=== PATIENT | male | born 1965 | race African-American/Black ===

== ENCOUNTER 2021-01-20 13:21 | Inpatient (IN) | payer BC ==
[2021-01-20] MEDS ORDERED: ACETAMINOPHEN 325 MG TABLET (FP) PO PRN ×2 (19:14)
[2021-01-20] MEDS ORDERED: METHOCARBAMOL 500 MG TABLET PO PRN (19:14)
[2021-01-20] MEDS ORDERED: MAGNESIUM HYDROX 2400MG/30ML ORAL SUSPENSION 30 ML CUP PO PRN (19:14)
[2021-01-20] MEDS ORDERED: BISMUTH SUBSALICYLATE 524 MG/30 ML UD PO PRN (19:14)
[2021-01-20] MEDS ORDERED: ONDANSETRON *ODT* 4 MG TABLET SL PRN (19:14)
[2021-01-20] MEDS ORDERED: MAGNESIUM CITRATE 300 ML BOTTLE PO PRN (19:14)
[2021-01-20] MEDS ORDERED: IBUPROFEN 400 MG TABLET (FP) PO PRN (19:14)
[2021-01-20] MEDS ORDERED: NICOTINE POLACRILEX 2 MG GUM BUC PRN (19:14)
[2021-01-20] MEDS ORDERED: MENTHOL/PHENOL 1 EACH UD MM PRN (19:14)
[2021-01-20] MEDS ORDERED: MAG HYDROX/AL HYDROX/SIMETH 30 ML UNIT-DOSE CUP PO PRN (19:14)
[2021-01-20 19:41] VITALS: BMI 33.1
[2021-01-20] MEDS ORDERED: diazePAM 5 MG TABLET PO ONE (20:24)
[2021-01-20] MEDS ORDERED: diazePAM 5 MG TABLET PO PRN (20:24)
[2021-01-20] MEDS: THIAMINE HCL 100 MG TABLET (FP) PO SCH (22:15)
[2021-01-20] MEDS: MELATONIN 5 MG TABLETS PO SCH (22:15)
[2021-01-20] MEDS: hydrOXYzine PAMOATE 25 MG CAPSULE (FP) PO SCH (22:15)
[2021-01-20] MEDS: diazePAM 5 MG TABLET PO SCH (22:18)
[2021-01-21] MEDS: diazePAM 5 MG TABLET PO SCH ×4 (05:53→22:17)
[2021-01-21] MEDS: hydrOXYzine PAMOATE 25 MG CAPSULE (FP) PO SCH ×2 (05:54→10:15)
[2021-01-21] MEDS: PRENATAL VITAMINS W/ FOLIC ACID TABLET (FP) PO SCH (10:15)
[2021-01-21] MEDS ORDERED: hydrOXYzine PAMOATE 25 MG CAPSULE (FP) PO PRN (10:45)
[2021-01-21 11:59] LABS: HEMATOCRIT 40.8 % (35.4-49); MCH 32.9 pg (25.7-33.7); MCHC 34.2 g/dl (32.0-35.9); MEAN CELL VOLUME 96.2 fl (80-96); MEAN PLT VOLUME 8.4 fl (7.5-11.1); PLATELET COUNT 107 K/MM3 (134-434); RBC 4.24 M/mm3 (4.00-5.60); RDW 14.1 % (11.9-15.9); WHITE BLOOD COUNT 2.7 K/mm3 (4.0-10.0)
[2021-01-21 12:26] LABS: POTASSIUM 3.8 mmol/L (3.5-5.1)
[2021-01-21 12:29] LABS: ALBUMIN 3.4 g/dl (3.4-5.0); BLOOD UREA NITROGEN 8.9 mg/dL (7-18); CALCIUM 9.5 mg/dL (8.5-10.1)
[2021-01-21 12:32] LABS: CREATININE 0.9 mg/dL (0.55-1.3)
[2021-01-21 12:35] LABS: BILIRUBIN,TOTAL 1.2 mg/dL (0.2-1); TOT PROT 7.2 g/dl (6.4-8.2)
[2021-01-21] MEDS: THIAMINE HCL 100 MG TABLET (FP) PO SCH (22:17)
[2021-01-21] MEDS: MELATONIN 5 MG TABLETS PO SCH (22:17)
[2021-01-22] MEDS: diazePAM 5 MG TABLET PO SCH ×3 (07:39→22:32)
[2021-01-22] MEDS: PRENATAL VITAMINS W/ FOLIC ACID TABLET (FP) PO SCH (10:42)
[2021-01-22] MEDS: MELATONIN 5 MG TABLETS PO SCH (22:33)
[2021-01-22] MEDS: THIAMINE HCL 100 MG TABLET (FP) PO SCH (22:33)
[2021-01-23] MEDS: diazePAM 5 MG TABLET PO SCH ×2 (05:20→17:55)
[2021-01-23] MEDS: PRENATAL VITAMINS W/ FOLIC ACID TABLET (FP) PO SCH (10:12)
[2021-01-23] MEDS: THIAMINE HCL 100 MG TABLET (FP) PO SCH (22:20)
[2021-01-23] MEDS: MELATONIN 5 MG TABLETS PO SCH (22:20)
[2021-01-24] MEDS ORDERED: diazePAM 5 MG TABLET PO ONE (06:00)
[2021-01-24 07:22] VITALS: BP 109/62; PULSE 67; TEMP 97.5
== END 2021-01-24 09:00 | disposition other institution (70) | DRG 775 ==
LOC: YASAS 13:21 → Y3N 19:37
PROVIDERS: ADMIT Allergy & Immunology; ATTEND Allergy & Immunology
PROC: HZ2ZZZZ Detoxification Services for Substance Abuse Treatment (ICD-10-PCS; principal; 2021-01-20)
DX: F10.230 Alcohol dependence with withdrawal, uncomplicated (principal); M17.0 Bilateral primary osteoarthritis of knee; Z88.6 Allergy status to analgesic agent
CPT/HCPCS: 36415; 80053; 85027; 86780; 93005; 93010; C9803; U0003